=== PATIENT | female | born 1985 | race Two or more races ===

== ENCOUNTER 2017-05-23 15:49 | Inpatient (IN) | payer MEDICAID, OTHER ==
[~2017-05-23] VITALS: Ht 157.5 cm; Wt 68.0 kg
[2017-05-23] MEDS ORDERED: DEXT 5%/LR + PITOCIN 20UNITS/L 1,000 ML IV SCH ×3 (16:34→23:43)
[2017-05-23] MEDS ORDERED: CARBOPROST TROMETHAMINE 250 MCG/ML AMPUL IM PRN (16:45)
[2017-05-23] MEDS ORDERED: NALOXONE HCL 0.4 MG/ML 1ML VIAL IM PRN (16:45)
[2017-05-23] MEDS ORDERED: MISOPROSTOL 100MCG TABLET VG SCH (16:45)
[2017-05-23] MEDS ORDERED: METHYLERGONOVINE MALEATE 0.2 MG/ML IM PRN ×2 (16:45→23:45)
[2017-05-23] MEDS ORDERED: LIDOCAINE HCL 1% 20ML VIAL (Pyxis) INJ INFIL SCH (16:45)
[2017-05-23] MEDS ORDERED: BUTORPHANOL TARTRATE 2 MG/ML VIAL IV PRN (16:45)
[2017-05-23 16:51] LABS: CLARITY URINE CLEAR (CLEAR); COLOR URINE YELLOW (YELLOW); GLUCOSE URINE NEGATIVE (NEGATIVE); KETONES URINE TRACE (NEGATIVE); LEUKOCYTE ESTERASE URINE NEGATIVE (NEGATIVE); NITRITE URINE NEGATIVE (NEGATIVE); OCCULT BLOOD URINE TRACE (NEGATIVE); PH URINE 6.5 (4.5-8.0); PROTEIN URINE NEGATIVE (NEGATIVE); SPECIFIC GRAVITY URINE 1.014 (1.005-1.030); UROBILINOGEN URINE 0.2 E.U./dL (0.2-1.0)
[2017-05-23] MEDS ORDERED: PREN-88 PO (16:54)
[2017-05-23] MEDS ORDERED: FENTANYL CITRATE/PF 50MCG/ML 2ML VIAL ONE (16:55)
[2017-05-23] MEDS ORDERED: BUPIVACAINE HCL/NS/PF EPIDURAL 100 ML EP ONE (16:55)
[2017-05-23] MEDS ORDERED: BUPIVACAINE HCL/PF 0.25% (2.5MG/ML) 10ML ONE (16:55)
[2017-05-23] MEDS ORDERED: BUPIVACAINE HCL/NS/PF EPIDURAL 100 ML EP SCH (17:00)
[2017-05-23 17:06] LABS: *AMPHETAMINES SCREEN URINE NEGATIVE (NEGATIVE); *BARBITURATES SCREEN URINE NEGATIVE (NEGATIVE); *BENZODIAZEPINES SCREEN URINE NEGATIVE (NEGATIVE); *COCAINE SCREEN URINE NEGATIVE (NEGATIVE); CANNABINOID URINE SCREEN NEGATIVE (NEGATIVE); METHADONE URINE SCREEN NEGATIVE (NEGATIVE); OPIATES URINE SCREEN NEGATIVE (NEGATIVE); PHENCYCLIDINE URINE SCREEN NEGATIVE (NEGATIVE)
[2017-05-23 17:08] LABS: BASOPHILS % 0.1 % (0.0-2.0); HEMATOCRIT. 37.4 % (36.0-48.0); HEMOGLOBIN. 12.7 g/dL (12.0-16.0); LYMPHOCYTES % 10.2 % (20.0-50.0); MEAN CORPUSCULAR HEMOGLOBIN 30.1 pg (28.0-32.0); MEAN CORPUSCULAR VOLUME 88.8 fL (81.0-99.0); MONOCYTES % 5.2 % (2.0-8.0); NEUTROPHILS % 84.5 % (40.0-76.0); PLATELET 199 x1000/uL (130-400); RED BLOOD CELL COUNT 4.22 mill/uL (4.2-5.4)
[2017-05-23 17:36] LABS: RUBELLA IGG 103.4 IU/mL (4.99-10)
[2017-05-23 17:37] LABS: HEPATITIS B SURFACE ANTIGEN NEGATIVE
[2017-05-23] MEDS: LACTATED RINGERS 1,000 ML IV SCH ×3 (18:40→19:45)
[2017-05-23 18:59] LABS: INR 0.9; PARTIAL THROMBOPLASTIN TIME 25.2 sec (24.0-34.0); PROTHROMBIN TIME 9.4 sec
[2017-05-23] MEDS ORDERED: OXYCODONE HCL/ACETAMINOPHEN 5/325MG TABLET PO PRN ×2 (23:45)
[2017-05-23] MEDS ORDERED: GLYCERIN/WITCH HAZEL LEAF MEDICATED PAD TOP PRN (23:45)
[2017-05-23] MEDS ORDERED: BENZOCAINE/LANOLIN/ALOE VERA SPRAY TOP PRN (23:45)
[2017-05-23] MEDS ORDERED: LANOLIN OINT 0.25 GM TUBE TOP PRN (23:45)
[2017-05-23] MEDS ORDERED: IBUPROFEN 400MG TABLET PO PRN (23:45)
[2017-05-23] MEDS ORDERED: BISACODYL 10MG SUPP PR PRN (23:45)
[2017-05-24] MEDS ORDERED: METHYLERGONOVINE MALEATE 0.2 MG/ML IM PRN
[2017-05-24 02:00] VITALS: BP 90/63
[2017-05-24 02:30] VITALS: BP 102/60
[2017-05-24] MEDS ORDERED: CEFAZOLIN 2,000 MG in DEXT 5% WATER 100 ML IV ONE (04:30)
[2017-05-24 05:00] VITALS: BP 96/52
[2017-05-24] MEDS: IBUPROFEN 800MG TABLET PO PRN ×3 (05:00→18:08)
[2017-05-24 08:15] VITALS: BP 99/55
[2017-05-24 10:21] LABS: BASOPHILS % 0.4 % (0.0-2.0); EOSINOPHILS % 0.2 % (0.0-5.0); HEMOGLOBIN. 10.5 g/dL (12.0-16.0); LYMPHOCYTES % 15.1 % (20.0-50.0); MEAN CORPUSCULAR HEMOGLOBIN 30.5 pg (28.0-32.0); MEAN CORPUSCULAR VOLUME 89.7 fL (81.0-99.0); MEAN PLATELET VOLUME 10.3 fl (7.4-10.4); NEUTROPHILS % 77.3 % (40.0-76.0); PLATELET 147 x1000/uL (130-400); RED BLOOD CELL COUNT 3.45 mill/uL (4.2-5.4)
[2017-05-24] MEDS: FERROUS SULFATE 325MG TABLET PO SCH (11:04)
[2017-05-24] MEDS: PRENATAL VIT/FE FUMARATE/FA TABLET PO SCH (11:04)
[2017-05-24] MEDS ORDERED: DOCUSATE SODIUM 100MG CAPSULE PO SCH (21:00)
[2017-05-25 00:15] VITALS: BP 96/61
[2017-05-25] MEDS: IBUPROFEN 800MG TABLET PO PRN ×2 (02:08→09:11)
[2017-05-25 07:30] VITALS: BP 98/64
[2017-05-25] MEDS: FERROUS SULFATE 325MG TABLET PO SCH (09:09)
[2017-05-25] MEDS: PRENATAL VIT/FE FUMARATE/FA TABLET PO SCH (09:09)
== END 2017-05-25 13:30 | disposition home or self-care (01) | DRG 560 ==
LOC: OBSVTOIN 15:49 → L&D 15:49 → 7EST PP/OB 05-24 01:50
PROVIDERS: ADMIT Obstetrics & Gynecology; ATTEND Obstetrics & Gynecology
PROC: 0W8NXZZ Division of Female Perineum, External Approach (ICD-10-PCS; 2017-05-23)
PROC: 3E0S3BZ Introduction of Anesthetic Agent into Epidural Space, Percutaneous Approach (ICD-10-PCS; 2017-05-23)
PROC: 00HU33Z Insertion of Infusion Device into Spinal Canal, Percutaneous Approach (ICD-10-PCS; 2017-05-23)
PROC: 10E0XZZ Delivery of Products of Conception, External Approach (ICD-10-PCS; principal; 2017-05-23 23:59)
DX: O69.81X0 Labor and delivery complicated by cord around neck, without compression, not applicable or unspecified (principal); Z37.0 Single live birth; Z3A.38 38 weeks gestation of pregnancy
CPT/HCPCS: 36415; 80305; 81001; 85025; 85610; 85730; 86592; 86703; 86762; 86850; 86900; 87340; J0595; J2590; J3010; J3490; J7120; A4315